=== PATIENT | female | born 1945 | race Caucasian/White ===

== ENCOUNTER 2016-03-14 19:29 | Emergency (ER) | payer MEDICARE ==
[2016-03-14 19:44] VITALS: TEMP 98.4; BMI 22.4
[2016-03-14 20:18] LABS: AUTOMATED BASOPHIL 0.5 % (0-2); AUTOMATED EOSINOPHIL 1.2 % (0-5); AUTOMATED LYMPH 37.4 % (17-44); AUTOMATED MONOCYTE 4.9 % (3-10); MPV 10.4 fL (7.4-10.4)
[2016-03-14 20:25] LABS: BLOOD UREA NITROGEN 16 MG/DL (7-17); CALCIUM 9.5 MG/DL (8.4-10.2); CALCULATED OSMOLALITY 279 MOs/Kg (270-290); CHLORIDE 103 mEq/L (98-107); GLUCOSE 115 MG/DL (70-99); SODIUM LEVEL 144 mEq/L (137-146); TOTAL PROTEIN 7.4 G/DL (6.3-8.2)
[2016-03-14 20:28] LABS: PARTIAL THROMB. TIME 24.7 SEC (22-35); PT-INR 1.1
--- NOTE | 2016-03-14 21:19 | DIRPT ---
CLINICAL DATA: 70-year-old female with chest pain. EXAM: CHEST 2 VIEW COMPARISON: None. FINDINGS: The cardiomediastinal silhouette is unremarkable. There is no evidence of focal airspace disease, pulmonary edema, suspicious pulmonary nodule/mass, pleural effusion, or pneumothorax. No acute bony abnormalities are identified. IMPRESSION: No active cardiopulmonary disease. Electronically Signed By: Teddy Ramírez M.D. On: 03/14/2016 21:16
--- NOTE | 2016-03-14 21:34 | EDPRACDOC ---
- General Information Chief Complaint: Chest Pain Stated Complaint: CHEST PAIN/VOMITING Time Seen by Provider: 03/14/16 20:25 Information Source: Patient Mode of Arrival: Car Home Medications: Home Medications Ondansetron [Zofran Odt] 4 mg PO TID PRN #10 tab.rapdis 03/14/16 Pantoprazole Sodium [Protonix] 40 mg PO DAILY 03/14/16 Simvastatin [Zocor] 20 mg PO QHS 03/14/16 Allergies/Adverse Reactions: Allergies Allergy/AdvReac Type Severity Reaction Status Date / Time No Known Allergies Allergy Verified 03/14/16 19:44 - History of Present Illness Onset: yesterday HPI: C/o N/V since Thanksgiving with epigastric pain and "fullness" under left breast after eating or drinking that makes her vomit after every meal. Also c/o alot of belching with no prior hx of same. Endoscopy in Jan 2016 was unremarkable. PPI's did not help after 1 month trial. Epigastric pain has radiated to mid back x 3 days. Denies CP, sob, fever, diarrhea, changes in urine or BM. Med hx = none. Surgical hx= hysterectomy. Chest Pain Location: Reports: Epigastric, Other (under left breast) Pain Radiation: Reports: Back Symptoms Occur: Reports: Other (after eating) Cardiac Risk Factors: Reports: None Cardiac History of: Reports: None PE Risk Factors: Reports: None Medications within 24 Hours: Reports: None Prehospital Care: Reports: None Pain Status: No Pain Pain Description: Reports: Tightness Pain Severity: Moderate Pain Worsens With: Reports: Other (eating) Pain Improves With: Reports: Nothing Associated Signs and Symptoms: Reports: Nausea, Vomiting ED Past Medical History - History Reviewed Yes Nurses notes reviewed and agree except as marked - Patient Medical History Cardiac History: Reports: Hypercholesterolemia Psychological History: Denies: Depression - Social Medical History Smoking Status: Never smoker EDM Review of Systems - Review of Systems ROS Negative Except as Marked: Yes All systems reviewed and were negative except as marked Gastrointestinal: Nausea, Pain, Vomiting - Physical Exam Constitutional: No apparent distress, Alert Oriented to: Time, Person, Place Last recorded Vital Signs: Last Vital Signs Temp 98.4 F 03/14/16 19:35 Pulse 66 03/14/16 20:57 Resp 18 03/14/16 20:57 BP 143/73 03/14/16 20:57 Pulse Ox 96 03/14/16 20:57 Oxygen Pulse Oxygen Saturation 96 O2 Device Room Air Oxygen Flow Rate Fraction of Inspired Oxygen ( FIO2) - HEENT Head: Normal Eye Exam: negative: Conjunctival Injection, Scleral Icterus Oropharynx: negative: Drooling TMJ: Normal Nose: No Symptoms Reported Neck: Normal - Respiratory/Cardiovascular Respiratory: Normal - CTA Cardiovascular: Normal - GI Auscultation: Normal Palpation: Normal Tenderness: Non tender Watts's Sign: Negative - Musculoskeletal Back: Normal Extremities: Normal - Integumentary Skin: Normal - Neurologic Mood Description: Normal Thought: Coherent Perception: Normal ED Chest Pain Exam - Respiratory/Cardiovascular Respiratory: Normal - CTA Cardiovascular/Chest: Normal Radial Pulse: Normal Pedal Pulse: Normal Edema: negative: 1+, 2+, 3+, 4+, 5, 6 Chest Palpation: Normal - Action ASA given in the ED: No - Results 03/14/16 19:50 03/14/16 19:50 WBC 6.3 xk/uL (3.8-10.8) 03/14/16 19:50 RBC 4.61 xM/uL (4.20-5.40) 03/14/16 19:50 Hgb 14.3 g/dL (12.0-16.0) 03/14/16 19:50 Hct 42.6 % (36-47) 03/14/16 19:50 MCV 93 fL (81-99) 03/14/16 19:50 MCH 31.1 pg (27-32) 03/14/16 19:50 MCHC 33.6 g/dl (33-36) 03/14/16 19:50 RDW 13.0 % (11.5-14.5) 03/14/16 19:50 Plt Count 208 xk/uL (130-400) 03/14/16 19:50 MPV 10.4 fL (7.4-10.4) 03/14/16 19:50 Neut % (Auto) 56.0 % (45-76) 03/14/16 19:50 Lymph % (Auto) 37.4 % (17-44) 03/14/16 19:50 Robeson % (Auto) 4.9 % (3-10) 03/14/16 19:50 Eos % (Auto) 1.2 % (0-5) 03/14/16 19:50 Baso % (Auto) 0.5 % (0-2) 03/14/16 19:50 Absolute Neuts (auto) 3.53 xk/uL (1.7-8.2) 03/14/16 19:50 Absolute Lymphs (auto) 2.33 xk/uL (0.65-4.75) 03/14/16 19:50 PT 10.8 SEC (9.2-11.2) 03/14/16 19:50 INR 1.1 03/14/16 19:50 APTT 24.7 SEC (22-35) 03/14/16 19:50 Sodium 144 mEq/L (137-146) 03/14/16 19:50 Potassium 3.7 mEq/L (3.5-5.1) 03/14/16 19:50 Chloride 103 mEq/L (98-107) 03/14/16 19:50 Carbon Dioxide 29 mMOL/L (22-33) 03/14/16 19:50 Anion Gap 16 mEq/L (8-16) 03/14/16 19:50 BUN 16 MG/DL (7-17) 03/14/16 19:50 Creatinine 0.70 MG/DL (0.52-1.04) 03/14/16 19:50 Estimated GFR (MDRD) > 60 mL/min (>=60) 03/14/16 19:50 Glucose 115 MG/DL (70-99) H 03/14/16 19:50 Calculated Osmolality 279 MOs/Kg (270-290) 03/14/16 19:50 Calcium 9.5 MG/DL (8.4-10.2) 03/14/16 19:50 Total Bilirubin 0.9 MG/DL (0.2-1.3) 03/14/16 19:50 AST 30 IU/L (14-36) 03/14/16 19:50 ALT 47 IU/L (9-52) 03/14/16 19:50 Alkaline Phosphatase 68 IU/L (55-165) 03/14/16 19:50 Troponin I < 0.01 ng/mL (<.04) 03/14/16 19:50 Hsa-F-Agrfvfurtvx Pept 52 pg/mL (0-900) 03/14/16 19:50 Total Protein 7.4 G/DL (6.3-8.2) 03/14/16 19:50 Albumin 4.5 G/DL (3.5-5.0) 03/14/16 19:50 Lipase 81 U/L (23-300) 03/14/16 19:50 Lab Results 03/14/16 03/14/16 03/14/16 19:50 19:50 19:50 WBC 6.3 RBC 4.61 Hgb 14.3 Hct 42.6 MCV 93 MCH 31.1 MCHC 33.6 RDW 13.0 Plt Count 208 MPV 10.4 Neut % (Auto) 56.0 Lymph % (Auto) 37.4 Robeson % (Auto) 4.9 Eos % (Auto) 1.2 Baso % (Auto) 0.5 Absolute Neuts (auto) 3.53 Absolute Lymphs (auto) 2.33 PT 10.8 INR 1.1 APTT 24.7 Sodium Potassium Chloride Carbon Dioxide Anion Gap BUN Creatinine Estimated GFR (MDRD) Glucose Calculated Osmolality Calcium Total Bilirubin AST ALT Alkaline Phosphatase Troponin I Iwa-F-Yedpusnnfcx Pept Total Protein Albumin Lipase 81 03/14/16 19:50 WBC RBC Hgb Hct MCV MCH MCHC RDW Plt Count MPV Neut % (Auto) Lymph % (Auto) Robeson % (Auto) Eos % (Auto) Baso % (Auto) Absolute Neuts (auto) Absolute Lymphs (auto) PT INR APTT Sodium 144 Potassium 3.7 Chloride 103 Carbon Dioxide 29 Anion Gap 16 BUN 16 Creatinine 0.70 Estimated GFR (MDRD) > 60 Glucose 115 H Calculated Osmolality 279 Calcium 9.5 Total Bilirubin 0.9 AST 30 ALT 47 Alkaline Phosphatase 68 Troponin I < 0.01 Nvz-F-Wxtuwrlnvxe Pept 52 Total Protein 7.4 Albumin 4.5 Lipase Laboratory Results - last 24 hr 03/14/16 03/14/16 03/14/16 19:50 19:50 19:50 WBC 6.3 RBC 4.61 Hgb 14.3 Hct 42.6 MCV 93 MCH 31.1 MCHC 33.6 RDW 13.0 Plt Count 208 MPV 10.4 Neut % (Auto) 56.0 Lymph % (Auto) 37.4 Robeson % (Auto) 4.9 Eos % (Auto) 1.2 Baso % (Auto) 0.5 Absolute Neuts (auto) 3.53 Absolute Lymphs (auto) 2.33 PT 10.8 INR 1.1 APTT 24.7 Sodium 144 Potassium 3.7 Chloride 103 Carbon Dioxide 29 Anion Gap 16 BUN 16 Creatinine 0.70 Estimated GFR (MDRD) > 60 Glucose 115 H Calculated Osmolality 279 Calcium 9.5 Total Bilirubin 0.9 AST 30 ALT 47 Alkaline Phosphatase 68 Troponin I < 0.01 Zne-I-Wtwekptegyk Pept 52 Total Protein 7.4 Albumin 4.5 Lipase 03/14/16 19:50 WBC RBC Hgb Hct MCV MCH MCHC RDW Plt Count MPV Neut % (Auto) Lymph % (Auto) Robeson % (Auto) Eos % (Auto) Baso % (Auto) Absolute Neuts (auto) Absolute Lymphs (auto) PT INR APTT Sodium Potassium Chloride Carbon Dioxide Anion Gap BUN Creatinine Estimated GFR (MDRD) Glucose Calculated Osmolality Calcium Total Bilirubin AST ALT Alkaline Phosphatase Troponin I Xxt-U-Bihjlkpbloq Pept Total Protein Albumin Lipase 81 Laboratory Results 03/14/16 19:50 03/14/16 19:50 - EKG EKG #1 EKG Time: 19:32 -: Yes EKG interpreted by me Rate: bpm: 68 Rhythm: NSR ST: Normal - Diagnostic Imaging Chest Image interpreted by: Radiologist EXAM: CHEST 2 VIEW COMPARISON: None. FINDINGS: The cardiomediastinal silhouette is unremarkable. There is no evidence of focal airspace disease, pulmonary edema, suspicious pulmonary nodule/mass, pleural effusion, or pneumothorax. No acute bony abnormalities are identified. IMPRESSION: No active cardiopulmonary disease. Electronically Signed By: Teddy Ramírez M.D. On: 03/14/2016 21:16 Abdomen Image interpreted by: Radiologist EXAM: US ABDOMEN LIMITED - RIGHT UPPER QUADRANT COMPARISON: CT abdomen and pelvis 01/29/2008 FINDINGS: Gallbladder: No gallstones or wall thickening visualized. No sonographic Watts sign noted by research engineer. Common bile duct: Diameter: 3 mm, normal Liver: No focal lesion identified. Within normal limits in parenchymal echogenicity. IMPRESSION: Normal examination. No evidence of cholelithiasis or cholecystitis. Electronically Signed By: Omar River M.D. On: 03/14/2016 21:43 Decision Time to Discharge: 21:56 - Departure Disposition: Home Condition: Stable Final Diagnosis: Nausea and vomiting Qualifiers: Vomiting type: unspecified Vomiting Intractability: unspecified Qualified Code( s): R11.2 - Nausea with vomiting, unspecified Abdominal pain Qualifiers: Abdominal location: left upper quadrant Qualified Code(s): R10.12 - Left upper quadrant pain Instructions: Non-pharmacological Pain Management Therapies for Adults (GEN), Acute Nausea and Vomiting (ED), Abdominal Pain (ED) Education/Counseling Given To: Patient, Family Member Education/Counseling Given Regarding: Diagnosis, Treatment, Prognosis, Follow Up Referrals: Roland Rooney MD [Primary Care Provider] - One Week Prescriptions: Ondansetron [Zofran Odt] 4 mg PO TID PRN #10 tab.rapdis PRN Reason: Nausea/Vomiting Additional Instructions: Follow up with primary care and GI specialist. Take zofran for nausea as directed. Return to ED for any new or worsening symptoms.
--- NOTE | 2016-03-14 21:46 | DIRPT ---
CLINICAL DATA: Abdominal pain for 6 weeks. EXAM: US ABDOMEN LIMITED - RIGHT UPPER QUADRANT COMPARISON: CT abdomen and pelvis 01/29/2008 FINDINGS: Gallbladder: No gallstones or wall thickening visualized. No sonographic Watts sign noted by termite control technician. Common bile duct: Diameter: 3 mm, normal Liver: No focal lesion identified. Within normal limits in parenchymal echogenicity. IMPRESSION: Normal examination. No evidence of cholelithiasis or cholecystitis. Electronically Signed By: Omar River M.D. On: 03/14/2016 21:43
[2016-03-14 22:29] VITALS: BP 130/72; PULSE 71
== END 2016-03-14 22:24 | disposition home or self-care (01) ==
LOC: ED 19:29
DX: R11.2 Nausea with vomiting, unspecified (principal); R10.12 Left upper quadrant pain; E78.00 Pure hypercholesterolemia, unspecified; Z79.899 Other long term (current) drug therapy
CPT/HCPCS: 36415; 71020; 76705; 80053; 83690; 83880; 84484; 85025; 85610; 85730; 93005; 99283